=== PATIENT | female | born 1955 | race Two or more races ===

== ENCOUNTER → 2024-08-10 | Outpatient (CLI) | payer OTHER ==
[~2024-08-10] MED LIST: ACET500T58 PO; CEPH500C PO
[2024-08-10 12:41] LABS: Urine Bacteria None Seen /hpf (None Seen)
[2024-08-10 12:59] LABS: Basophils # (auto) 0.1 10 ^3/uL (0-0.2); Basophils % (auto) 1.3 % (0.0-2.0); Eosinophils # (auto) 0.1 10 ^3/uL (0-0.8); Eosinophils % (auto) 2.6 % (0.0-7.0); Hematocrit 40.2 % (36.0-46.0); Hemoglobin 12.9 g/dL (12.2-16.2); Lymphocytes # (auto) 1.8 10 ^3/uL (0.4-5.4); Lymphocytes % (auto) 36.6 % (10.0-50.0); Mean Corpuscular Hemoglobin 26.3 pg (28.0-32.0); Mean Corpuscular Hgb Conc. 32.1 g/dL (32.0-36.0); Mean Corpuscular Volume 81.8 fL (80.0-100.0); Monocytes # (auto) 0.3 10 ^3/uL (0-1.3); Monocytes % (auto) 6.5 % (0.0-12.0); Neutrophils # (auto) 2.5 10 ^3/uL (1.6-8.6); Nucleated Red Blood Cells % 0.1 %; Platelet Count (auto) 262 10^3/uL (140-450); Red Blood Cells 4.91 10^6/uL (4.0-5.20); White Blood Cell 4.8 10^3/uL (4.4-10.8)
[2024-08-10 13:02] LABS: Urine Blood Negative /uL (Negative); Urine Clarity Clear (Clear); Urine Color Light-Yellow (Yellow); Urine Protein, UAD Negative (Negative); Urine Specific Gravity 1.011 (1.001-1.035); Urine Squamous Epithelial Cell FEW /hpf (<5); Urine Urobilinogen Normal (Negative); Urine WBC 1 /HPF (0-5)
[2024-08-10 13:37] LABS: Alanine Aminotransferase 13 U/L (7-40); Alkaline Phosphatase 101 U/L (46-116); Anion Gap 7 (5-15); Aspartate Aminotransferase 13 U/L (13-40); BUN/Creatinine Ratio 11.8 (10.0-20.0); Blood Urea Nitrogen 9 mg/dL (9-23); Carbon Dioxide 29 mmol/L (20-31); Chloride 103 mmol/L (98-107); Glucose 104 mg/dL (74-106); Potassium 4.3 mmol/L (3.5-5.1); Sodium 139 mmol/L (136-145)
[2024-08-10 13:38] LABS: Bilirubin, Total 0.6 mg/dL (0.2-1.0); Total Protein 7.8 g/dL (5.7-8.2)
[2024-08-10 13:40] LABS: Follicle Stimulating Hormone 33.14 IU/L (SEE BELOW); Thyroid Stimulating Hormone 3.69 uIU/mL (0.55-4.78)
[2024-08-10 13:41] LABS: Leuteinizing Hormone 17.8 IU/L; Prolactin 3.88 ng/mL (2.8-29.2)
[2024-08-10 13:47] LABS: Calcium 10.6 mg/dL (8.7-10.4)
[2024-08-10 15:04] LABS: LDL Cholesterol 96 mg/dL (< 100)
[2024-08-10 15:05] LABS: Bilirubin, Direct 0.2 mg/dL (<0.3); Cholesterol 181 mg/dL (< 200)
[2024-08-10 15:07] LABS: HDL Cholesterol 39 mg/dL (40-59); Triglycerides 191 mg/dL (< 150)
[2024-08-11 11:07] LABS: Estradiol 17.6 pg/mL (0.0-54.7)
== END | disposition home or self-care (01) ==
LOC: LAB 12:24
PROVIDERS: ATTEND Family Medicine
DX: E11.9 Type 2 diabetes mellitus without complications (principal); E78.1 Pure hyperglyceridemia
CPT/HCPCS: 36415; 80053; 80061; 81001; 82248; 82626; 82670; 83001; 83002; 83615; 84144; 84146; 84403; 84443; 85025; 87086

== ENCOUNTER 2025-02-02 13:20 | Outpatient (CLI) | payer OTHER ==
[2025-02-02 14:18] LABS: Chloride 104 mmol/L (98-107); Potassium 4.1 mmol/L (3.5-5.1); Sodium 141 mmol/L (136-145)
[2025-02-02 14:19] LABS: Anion Gap 8 (5-15); Calcium 10.1 mg/dL (8.7-10.4); Carbon Dioxide 29 mmol/L (20-31)
[2025-02-02 14:24] LABS: BUN/Creatinine Ratio 16.3 (10.0-20.0); Blood Urea Nitrogen 13 mg/dL (9-23); Glucose 85 mg/dL (74-106)
[2025-02-02 14:57] LABS: Microalb/Creat Ratio, Urine 6.00
== END 2025-02-02 17:00 | disposition home or self-care (01) ==
LOC: LAB 13:20
PROVIDERS: ATTEND Family Medicine
DX: E11.9 Type 2 diabetes mellitus without complications (principal)
CPT/HCPCS: 36415; 80048; 82043; 82570